=== PATIENT | female | born 1940 | race African-American/Black ===

== ENCOUNTER 2019-03-29 06:58 | Outpatient (CLI) | payer MEDICARE, OTHER ==
[2019-03-29] VITALS (10 sets, daily range): BP systolic 122–181; BP diastolic 50–85
[~2019-03-29] VITALS: Ht 152.4 cm; Wt 81.6 kg
[2019-03-29] MEDS ORDERED: GABA600T7 PO (07:30)
[2019-03-29] MEDS ORDERED: HUM100VI5 SQ ×2 (07:30)
[2019-03-29] MEDS ORDERED: CALC-98 PO (07:30)
[2019-03-29] MEDS ORDERED: ATOR10TA60 PO (07:30)
[2019-03-29] MEDS ORDERED: LOSA-73 PO (07:30)
[2019-03-29] MEDS ORDERED: GLIM4TAB2 PO (07:30)
[2019-03-29] MEDS ORDERED: FERR-36 PO (07:30)
[2019-03-29] MEDS ORDERED: CYAN10005 PO (07:30)
[2019-03-29] MEDS ORDERED: LEVO75TA PO (07:30)
[2019-03-29] MEDS ORDERED: METF500T9 PO (07:30)
[2019-03-29 07:51] LABS: BASO % 1 % (0-3); EOS # 0.1 x10^3/uL (0.0-0.7); EOS % 3 % (0-3); HEMATOCRIT 28.3 % (36.0-47.0); HEMOGLOBIN 9.6 g/dL (12.0-15.5); LYMPH # 1.5 x10^3/uL (1.0-4.8); LYMPH % 32 % (24-48); MEAN CORPUSCULAR HEMOGLOBIN 32 pg (25-35); MEAN CORPUSCULAR HGB CONC 34 g/dL (31-37); MEAN CORPUSCULAR VOLUME 94 fL (79-100); MONO # 0.5 x10^3/uL (0.0-1.1); MONO % 11 % (0-9); NEUT # 2.5 x10^3uL (1.8-7.7); NEUT % 53 % (31-73); PLATELET COUNT 219 x10^3/uL (140-400); RED BLOOD COUNT 3.01 x10^6/uL (3.50-5.40); RED CELL DISTRIBUTION WIDTH 13.6 % (11.5-14.5); WHITE BLOOD COUNT 4.8 x10^3/uL (4.0-11.0)
[2019-03-29 07:57] LABS: CALCIUM 9.3 mg/dL (8.5-10.1); CREATININE 1.1 mg/dL (0.6-1.0); GFR 58.3; POTASSIUM 3.8 mmol/L (3.5-5.1)
[2019-03-29] MEDS ORDERED: MIDAZOLAM HCL/PF 2 MG/2 ML VIAL. IV ONE (08:00)
[2019-03-29] MEDS ORDERED: fentaNYL PF VIAL 100 MCG/2 ML VIAL IV ONE (08:00)
[2019-03-29] MEDS ORDERED: LIDOCAINE WITH 8.4% SOD BICARB 3 ML DISP.SYRIN. IJ ONE (08:00)
[2019-03-29 08:06] LABS: ALBUMIN 3.5 g/dL (3.4-5.0); ALBUMIN/GLOBULIN RATIO 0.7 (1.0-1.7); TOTAL BILIRUBIN 0.4 mg/dL (0.2-1.0); TOTAL PROTEIN 8.2 g/dL (6.4-8.2)
[2019-03-29] MEDS ORDERED: LIDOCAINE WITH 8.4% SOD BICARB 3 ML DISP.SYRIN. ONE (08:11)
[2019-03-29] MEDS ORDERED: fentaNYL PF VIAL 100 MCG/2 ML VIAL ONE (08:12)
[2019-03-29] MEDS ORDERED: NALOXONE 0.4 MG/ML VIAL. ONE (08:12)
[2019-03-29] MEDS ORDERED: FLUMAZENIL 0.5 MG/5 ML VIAL. IV ONE (08:12)
[2019-03-29] MEDS ORDERED: MIDAZOLAM HCL/PF 2 MG/2 ML VIAL. ONE (08:12)
[2019-03-29 08:14] LABS: PROTHROMBIN TIME PATIENT 12.8 SEC (11.7-14.0)
--- NOTE | 2019-03-29 10:06 | RAD ---
CT-guided bone marrow biopsy. 03/29/2019 10:02 AM Indication: Multiple Myeloma Discussion: The risks and benefits of the procedure, including but not limited to, bleeding and infection were discussed patient. Informed consent was obtained. The patient was brought to the CT scanner and placed in the prone position. A timeout procedure was performed. [employer] CT imaging of the pelvis demonstrated left ilium amenable to bone marrow biopsy. The overlying soft tissues were prepped and draped using maximum sterile barrier technique. 1% lidocaine without epinephrine was administered for local anesthesia. Under intermittent CT guidance, an OncControl needle was advanced into the bone marrow of the left iliac crest. 2 Aspirates and 1 core biopsy samples were obtained. Samples were delivered to pathology was present at the time of procedure. The needle was removed and manual pressure held to achieve hemostasis. No immediate complications were identified. The procedure was performed under conscious sedation including continuous cardiopulmonary monitoring via dedicated sedation nurse. Sedation time: 20 minutes Impression: Successful CT-guided bone marrow biopsy of the left iliac crest . PQRS Compliance Statement: One or more of the following individualized dose reduction techniques were utilized for this examination: 1. Automated exposure control 2. Adjustment of the mA and/or kV according to patient size 3. Use of iterative reconstruction technique
--- NOTE | 2019-03-29 11:08 | NUR ---
Discharge Note: RAEANN MAHONEY Discharge instructions and discharge home medications reviewed with Spouse and a copy given. All questions have been answered and understanding verbalized. Patient ate breakfast without difficulty. The following instructions and handouts were given: Moderate sedation and Bone Marrow biopsy. Discontinued lines and drains: Left wrist PIV, dressing clean dry intact. Patient discharged to home with and son-in-law via wheelchair in private vehichle.
== END 2019-03-29 10:45 | disposition home or self-care (01) ==
LOC: INTRAD 06:58
PROVIDERS: ATTEND Internal Medicine Hematology & Oncology
DX: C90.00 Multiple myeloma not having achieved remission (principal); D89.0 Polyclonal hypergammaglobulinemia; D64.9 Anemia, unspecified; Z88.8 Allergy status to other drugs, medicaments and biological substances
CPT/HCPCS: 36415; 38222; 77012; 80053; 85025; 85610; 88184; 88185; 88237; 99152; J2250; J3010

== ENCOUNTER → 2019-11-16 | Day surgery (SDC) | payer MEDICARE, OTHER ==
[~2019-11-16] MED LIST: ATOR10TA60 PO; CALC-98 PO; CYAN-25 PO; FERR-36 PO; GABA600T7 PO; GLIM4TAB8 PO; HUM100VI5 SQ; IV RINGERS,LACTATED 1000ML 1,000 ML IV ONE; LEVO75TA PO; LIDOCAINE 2% PF 5 ML VIAL. ONE; LOSA-73 PO; METF500T11 PO; PROPOFOL 40 ML IV ONE
[2019-11-16 09:43] VITALS: BP 157/78
== END ==
LOC: ENDOS 07:21
PROVIDERS: ATTEND Internal Medicine Gastroenterology
DX: K92.2 Gastrointestinal hemorrhage, unspecified (principal); K22.2 Esophageal obstruction; K64.0 First degree hemorrhoids; D50.9 Iron deficiency anemia, unspecified; F41.9 Anxiety disorder, unspecified; E11.9 Type 2 diabetes mellitus without complications; K21.9 Gastro-esophageal reflux disease without esophagitis; E78.00 Pure hypercholesterolemia, unspecified; F15.90 Other stimulant use, unspecified, uncomplicated; Z90.710 Acquired absence of both cervix and uterus; Z98.51 Tubal ligation status; Z79.84 Long term (current) use of oral hypoglycemic drugs
CPT/HCPCS: 43235; 43450; 45378; J2001; J2704

== ENCOUNTER 2021-02-21 11:55 | Emergency (ER) | payer MEDICARE, OTHER ==
[~2021-02-21] VITALS: Ht 152.4 cm; Wt 86.0 kg
[~2021-02-21 11:55] MED LIST changes: -IV RINGERS,LACTATED 1000ML 1,000 ML IV ONE; -LEVO75TA PO; +LEVO75TA90 PO; -LIDOCAINE 2% PF 5 ML VIAL. ONE; +METF-658 PO; -METF500T11 PO; -PROPOFOL 40 ML IV ONE
--- NOTE | 2021-02-21 12:20 | ED.ADGEN ---
Past Medical History Past Medical History: Diabetes-Type II, Hypertension Smoking Status: Never Smoker General Adult EDM: Chief Complaint: NEURO SYMPTOMS/DEFICITS HPI: HPI: Patient is a 80-year-old female who arrives ambulatory to the emergency department complaining of right-sided facial pain/numbness. Patient describes a phenomenon where she has pain above her right eye radiating around to her right cheekbone and down her mouth. Patient states in addition to this she has had falls and felt clumsy however this has been ongoing now for 2 years and she stat es this is not any worse since the development of the right-sided facial pain/numbness. Patient was concerned that she may be having a stroke. Despite this, she denies any slurring of her speech. She further denies any sensory or motor changes of any of her extremities. Furthermore she does not feel dizzy. She further denies any chest pain or shortness of air. She is awake, alert and nontoxic-appearing Review of Systems: Review of Systems: Constitutional: Denies fever or chills. [] Eyes: Denies change in visual acuity. [] HENT: Denies nasal congestion or sore throat. [] Respiratory: Denies cough or shortness of breath. [] Cardiovascular: Denies chest pain or edema. [] GI: Denies abdominal pain, nausea, vomiting, bloody stools or diarrhea. [] : Denies dysuria. [] Musculoskeletal: Denies back pain or joint pain. [] Integument: Denies rash. [] Neurologic: Reports facial numbness/pain. Denies headache, focal weakness or sensory changes. [] Endocrine: Denies polyuria or polydipsia. [] Lymphatic: Denies swollen glands. [] Psychiatric: Denies depression or anxiety. [] Allergies: Allergies: Allergies Coded Allergies Type Severity Reaction Last Updated Verified Iodine and Iodide Containing Produc Allergy Severe Swelling 11/16/19 Yes Physical Exam: PE: Constitutional: Well developed, well nourished, no acute distress, non-toxic appearance. [] HENT: Normocephalic, atraumatic, bilateral external ears normal, oropharynx moist, no oral exudates, nose normal. [] Eyes: PERRLA, EOMI, conjunctiva normal, no discharge. [] Neck: Normal range of motion, no tenderness, supple, no stridor. [] Cardiovascular:Heart rate regular rhythm, no murmur [] Lungs & Thorax: Bilateral breath sounds clear to auscultation [] Abdomen: Bowel sounds normal, soft, no tenderness, no masses, no pulsatile masses. [] Skin: Warm, dry, no erythema, no rash. [] Back: No tenderness, no CVA tenderness. [] Extremities: No tenderness, no cyanosis, no clubbing, ROM intact, no edema. [] Neurologic: Alert and oriented X 3, normal motor function, normal sensory function, no focal deficits noted. [] Psychologic: Affect normal, judgement normal, mood normal. [] Current Patient Data: Labs: Laboratory Tests Test 02/21/21 12:37 02/21/21 12:57 02/21/21 13:03 White Blood Count 4.7 x10^3/uL (4.0-11.0) Red Blood Count 3.01 x10^6/uL (3.50-5.40) L Hemoglobin 10.0 g/dL (12.0-15.5) L Hematocrit 29.1 % (36.0-47.0) L Mean Corpuscular Volume 97 fL (79-100) Mean Corpuscular Hemoglobin 33 pg (25-35) Mean Corpuscular Hemoglobin Concent 34 g/dL (31-37) Red Cell Distribution Width 13.1 % (11.5-14.5) Platelet Count 213 x10^3/uL (140-400) Neutrophils (%) (Auto) 50 % (31-73) Lymphocytes (%) (Auto) 34 % (24-48) Monocytes (%) (Auto) 13 % (0-9) H Eosinophils (%) (Auto) 2 % (0-3) Basophils (%) (Auto) 1 % (0-3) Neutrophils # (Auto) 2.4 x10^3/uL (1.8-7.7) Lymphocytes # (Auto) 1.6 x10^3/uL (1.0-4.8) Monocytes # (Auto) 0.6 x10^3/uL (0.0-1.1) Eosinophils # (Auto) 0.1 x10^3/uL (0.0-0.7) Basophils # (Auto) 0.0 x10^3/uL (0.0-0.2) Prothrombin Time 13.2 SEC (11.7-14.0) Prothrombin Time INR 1.0 (0.8-1.1) Activated Partial Thromboplast Time 33 SEC (24-38) Glucose (Fingerstick) 223 mg/dL (70-99) H Sodium Level 141 mmol/L (136-145) Potassium Level 4.3 mmol/L (3.5-5.1) Chloride Level 104 mmol/L (98-107) Carbon Dioxide Level 27 mmol/L (21-32) Anion Gap 10 (6-14) Blood Urea Nitrogen 17 mg/dL (7-20) Creatinine 1.4 mg/dL (0.6-1.0) H Estimated GFR (Cockcroft-Gault) 43.9 Glucose Level 229 mg/dL (70-99) H Calcium Level 9.0 mg/dL (8.5-10.1) Troponin I Quantitative < 0.017 ng/mL (0.000-0.055) Laboratory Tests 02/21/21 12:37 Laboratory Tests 02/21/21 13:03 Vital Signs: Vital Signs Date Time Temp Pulse Resp B/P (MAP) Pulse Ox O2 Delivery O2 Flow Rate FiO2 02/21/21 12:35 98.2 64 16 212/77 (122) 100 Room Air 98.2 EKG: EKG: EKG was obtained at 12:31 PM and revealed a normal sinus rhythm with a ventricular rate of 72 bpm. There is QT prolongation present. There is left ax is deviation present without acute ST/T wave changes present. [] Heart Score: C/O Chest Pain: No Risk Factors: Risk Factors: DM, Current or recent (<one month) smoker, HTN, HLP, family history of CAD, obesity. Risk Scores: Score 0 - 3: 2.5% MACE over next 6 weeks - Discharge Home Score 4 - 6: 20.3% MACE over next 6 weeks - Admit for Clinical Observation Score 7 - 10: 72.7% MACE over next 6 weeks - Early Invasive Strategies Radiology/Procedures: Radiology/Procedures: [] Impression: [facility] [address] [place] [address] IMAGING REPORT Signed PATIENT: RAENAN MAHONEY ACCOUNT: [id number] : 1940 LOCATION: ER AGE: 80 SEX: F EXAM STATUS: REG ER ORD. PHYSICIAN: CRYSTAL GRANT DO REASON: RIGHT SIDED FACIAL NUMBNESS PROCEDURE: CT HEAD WO CONTRAST CT HEAD/BRAIN WO Clinical indications: Reason: RIGHT SIDED FACIAL NUMBNESS COMPARISON: None available. Technique: Noncontrast axial cross sectional scanning of the head was performed. PQRS compliance Statement One or more of the following individualized dose reduction techniques were utilized for this study: 1. Automated exposure control 2. Adjustment of the mA and/or kV according to patient size 3. Use of iterative reconstruction technique Findings: No acute intracranial hemorrhage or midline shift or mass-effect or hydrocephalus or extra-axial fluid collection is seen. Mild bilateral periventricular white matter hypodensity is seen bilaterally consistent with chronic small vessel ischemic disease. No skull fracture or pneumocephalus is seen. No opacification of the mastoid sinuses or the middle ear cavities or the paranasal sinuses is seen. The maxillary sinuses are not completely seen in this study. IMPRESSION: No acute intracranial hemorrhage is seen. Mild chronic small vessel ischemic disease. Electronically signed by: Shoaib Quintanilla MD (02/21/2021 12:40 PM) [id number] DICTATED and SIGNED BY: SHOAIB QUINTANILLA MD DATE: 02/21/21 [id number] 0 Course & Med Decision Making: Course & Med Decision Making Pertinent Labs and Imaging studies reviewed. (See chart for details) The patient remains awake, alert and in no acute distress. After speak with the patient in greater detail her pain/numbness follows the exact path of the trigeminal nerve in all 3 branches. In addition to this, the patient has not had any neurological changes otherwise. Specifically she is not had any dizziness any focal motor changes or any sensory problems. I did offer to place the patient in the hospital for further imaging and the patient politely declined. I did stress that she follow-up with her primary care physician for an MRI at the time of her choosing. Should she develop any neurological changes that have been previously mentioned I advised that she return to the emergency department immediately. The patient understands and has agreed to do so. She is nontoxic-appearing and neurologically intact. She is stable for discharge. [] Dragon Disclaimer: Dragcheryl Disclaimer: This electronic medical record was generated, in whole or in part, using a voice recognition dictation system. Departure Departure Impression: Primary Impression: Trigeminal neuralgia of right side of face Additional Impression: Hyperglycemia Disposition: 01 HOME / SELF CARE / HOMELESS Condition: STABLE Referrals: TASIA GRAY MD (PCP) Patient Instructions: Trigeminal Neuralgia Scripts Hydrocodone/Acetaminophen (Hydrocodone-Acetamin 5-325 mg) 1 Each Tablet 1 EACH PO Q6HRS for 3 Days, #12 TAB Prov: CRYSTAL GRNAT DO 02/21/21 Prednisone (PREDNISONE) 50 Mg Tablet 1 TAB PO DAILY for 5 Days, #5 TAB Prov: CRYSTAL GRANT DO 02/21/21 Problem Qualifiers CRYSTAL GRANT DO February 21, 2021 12:20
--- NOTE | 2021-02-21 12:42 | RAD ---
CT HEAD/BRAIN WO Clinical indications: Reason: RIGHT SIDED FACIAL NUMBNESS COMPARISON: None available. Technique: Noncontrast axial cross sectional scanning of the head was performed. PQRS compliance Statement One or more of the following individualized dose reduction techniques were utilized for this study: 1. Automated exposure control 2. Adjustment of the mA and/or kV according to patient size 3. Use of iterative reconstruction technique Findings: No acute intracranial hemorrhage or midline shift or mass-effect or hydrocephalus or extra- axial fluid collection is seen. Mild bilateral periventricular white matter hypodensity is seen bilat erally consistent with chronic small vessel ischemic disease. No skull fracture or pneumocephalus is seen. No opacification of the mastoid sinuses or the middle ear cavities or the paranasal sinuses is seen. The maxillary sinuses are not completely seen in this study. IMPRESSION: No acute intracranial hemorrhage is seen. Mild chronic small vessel ischemic disease. Electronically signed by: David Quintanilla MD (02/21/2021 12:40 PM) [id number]
[2021-02-21 12:49] LABS: BASO % 1 % (0-3); EOS # 0.1 x10^3/uL (0.0-0.7); EOS % 2 % (0-3); HEMATOCRIT 29.1 % (36.0-47.0); LYMPH # 1.6 x10^3/uL (1.0-4.8); LYMPH % 34 % (24-48); MEAN CORPUSCULAR HEMOGLOBIN 33 pg (25-35); MEAN CORPUSCULAR HGB CONC 34 g/dL (31-37); MEAN CORPUSCULAR VOLUME 97 fL (79-100); MONO # 0.6 x10^3/uL (0.0-1.1); MONO % 13 % (0-9); NEUT # 2.4 x10^3/uL (1.8-7.7); NEUT % 50 % (31-73); PLATELET COUNT 213 x10^3/uL (140-400); RED BLOOD COUNT 3.01 x10^6/uL (3.50-5.40); RED CELL DISTRIBUTION WIDTH 13.1 % (11.5-14.5); WHITE BLOOD COUNT 4.7 x10^3/uL (4.0-11.0)
[2021-02-21 12:57] LABS: PROTHROMBIN TIME PATIENT 13.2 SEC (11.7-14.0)
[2021-02-21 13:29] LABS: CREATININE 1.4 mg/dL (0.6-1.0); GFR 43.9; POTASSIUM 4.3 mmol/L (3.5-5.1)
--- NOTE | 2021-02-21 13:45 | EKG ---
[facility] [address] [place] [address] Test Date: 2021-02-21 Test Time: 12:31:46 Pat Name: RAEANN MAHONEY Department: Room: Gender: F Resistance Brazer: : 1940 Requested By: CRYSTAL GRANT Order Number: [id number] Reading MD: Measurements Intervals [place] Rate: 72 P: 51 TN: 152 QRS: -27 QRSD: 78 T: 14 QT: 432 QTc: 475 Interpretive Statements SINUS RHYTHM LEFTWARD AXIS PROLONGED QT NO SPECIFIC ECG ABNORMALITIES RI6.02 No previous ECG available for comparison
[2021-02-21] MEDS ORDERED: PRED50TA PO (14:18)
[2021-02-21] MEDS ORDERED: HYDR-2759 PO (14:18)
[2021-02-21 14:30] VITALS: BP 147/73
== END 2021-02-21 14:45 | disposition home or self-care (01) ==
LOC: ER 11:55
DX: G50.0 Trigeminal neuralgia (principal); E11.65 Type 2 diabetes mellitus with hyperglycemia; I10 Essential (primary) hypertension; Z91.041 Radiographic dye allergy status
CPT/HCPCS: 36415; 70450; 80048; 82962; 84484; 85025; 85610; 85730; 93005; 99284-25

== ENCOUNTER → 2022-02-20 | Outpatient (CLI) | payer BC ==
[~2022-02-20] MED LIST changes: +HYDR-2759 PO; +PRED50TA PO
--- NOTE | 2022-02-20 13:01 | KCIC ---
EXAM: Brain MRI without contrast. HISTORY: Trigeminal neuralgia. TECHNIQUE: Multiplanar, multisequence magnetic resonance imaging of the brain was performed without c ontrast. COMPARISON: None. FINDINGS: There is no restricted diffusion to suggest acute or subacute infarction. There is no mass effect or midline shift. There is no hemorrhage. There are scattered focal areas of signal change wit hin the cerebral white matter, likely due to chronic small vessel disease in a patient of this age. T here is mild age-appropriate cerebral volume loss. There is evidence of lens surgery. The paranasal sinuses and mastoid air cells are unremarkable. Ther e are normal flow voids within the cerebral vessels. There is an expanded empty sella. There is a tin y focus of encephalomalacia or a tiny dilated perivascular space within the bonny. IMPRESSION: 1. No acute intracranial finding. Note is made that a cranial nerve protocol MRI with and without con trast may be useful if there is concern for an occult lesion on this exam resulting in trigeminal lewis ralgia. 2. Scattered foci of signal change within the cerebral white matter, likely due to chronic small vess el disease. 3. Expanded empty sella. Electronically signed by: Elo Juárez MD (02/20/2022 12:58 PM) [id number]
== END ==
LOC: KCIC MRI 09:51
PROVIDERS: ATTEND Nurse Practitioner Family
DX: R90.82 White matter disease, unspecified (principal); G50.0 Trigeminal neuralgia
CPT/HCPCS: 70551